=== PATIENT | female | born 1990 | race American Indian/Alaskan Native ===

== ENCOUNTER 2017-04-26 11:04 | Emergency (ER) | payer OTHER ==
[2017-04-26 11:55] VITALS: BP 133/96
--- NOTE | 2017-04-26 12:49 | Emergency Department Report ---
- General Chief complaint: Skin/Abscess/Foreign Body Stated complaint: SWOLLEN/PAINFUL LABIA Time Seen by Provider: 04/26/17 12:44 Source: patient Mode of arrival: Ambulatory Limitations: No Limitations - History of Present Illness Initial comments: Patient here reported that she has swollen labia that started 2 days ago. She said one day prior she went to have a Pap smear at her [facility] Dr. Edwards and the next day her labia became swollen and painful with pain 10 out of 10. Denies any vaginal discharge or bleeding. Denies any abdominal or back pain. Denies any urinary frequency urgency or burning. Denies any fever or chills. TD vaccine is not up-to-date. MD complaint: abscess/boil Onset/Timin -: days(s) Tetanus Up to Date: no Location: genitals (left labia) Severity: severe Severity scale (0 -10): 10 Quality: constant (throbbing) Consistency: constant Improves with: rest Worsens with: palpation, movement Context: other (patient said that she had Pap smear and the use nondisposable medical equipment to do Pap smear she thinks this with she got the infection from.) Associated symptoms: denies other symptoms Treatments Prior to Arrival: none - Related Data Previous Rx's Medication Instructions Recorded Last Taken Type HYDROcodone/APAP 5-325 [[place] 1 each PO Q6HR PRN #12 tablet 04/26/17 Unknown Rx 5-325 mg TAB] Ibuprofen [Motrin] 600 mg PO Q8H PRN #15 tablet 04/26/17 Unknown Rx Sulfamethoxazole/Trimethoprim 1 each PO BID #20 tablet 04/26/17 Unknown Rx [Bactrim DS TAB] Allergies Allergy/AdvReac Type Severity Reaction Status Date / Time No Known Allergies Allergy Verified 04/26/17 11:51 Abscess Boil HPI - HPI Chief Complaint: Skin/Abscess/Foreign Body Stated Complaint: SWOLLEN/PAINFUL LABIA Time Seen by Provider: 04/26/17 12:44 Home Medications: Previous Rx's Medication Instructions Recorded Last Taken Type HYDROcodone/APAP 5-325 [[place] 1 each PO Q6HR PRN #12 tablet 04/26/17 Unknown Rx 5-325 mg TAB] Ibuprofen [Motrin] 600 mg PO Q8H PRN #15 tablet 04/26/17 Unknown Rx Sulfamethoxazole/Trimethoprim 1 each PO BID #20 tablet 04/26/17 Unknown Rx [Bactrim DS TAB] Allergies/Adverse Reactions: Allergies Allergy/AdvReac Type Severity Reaction Status Date / Time No Known Allergies Allergy Verified 04/26/17 11:51 ED Review of Systems ROS: Stated complaint: SWOLLEN/PAINFUL LABIA Other details as noted in HPI Comment: All other systems reviewed and negative Constitutional: denies: chills, fever Respiratory: no symptoms reported Cardiovascular: denies: chest pain, palpitations, edema, syncope Gastrointestinal: denies: abdominal pain, nausea, vomiting Genitourinary: other (abscess to left labia). denies: urgency, dysuria, frequency, hematuria, discharge Skin: other (abscess to left labia, painful) Neurological: denies: headache ED Past Medical Hx - Past Medical History Previous Medical History?: No - Surgical History Past Surgical History?: No - Family History Family history: no significant - Social History Smoking Status: Never Smoker Substance Use Type: None - Medications Home Medications: Home Medications Medication Instructions Recorded Confirmed Last Taken Type HYDROcodone/APAP 5-325 [[place] 1 each PO Q6HR PRN #12 tablet 04/26/17 Unknown Rx 5-325 mg TAB] Ibuprofen [Motrin] 600 mg PO Q8H PRN #15 tablet 04/26/17 Unknown Rx Sulfamethoxazole/Trimethoprim 1 each PO BID #20 tablet 04/26/17 Unknown Rx [Bactrim DS TAB] ED Physical Exam - General Limitations: No Limitations General appearance: alert, in no apparent distress - Head Head exam: Present: atraumatic, normocephalic, normal inspection - Eye Eye exam: Present: normal appearance, PERRL, EOMI Pupils: Present: normal accommodation - ENT ENT exam: Present: normal exam, normal orophraynx - Neck Neck exam: Present: normal inspection, full ROM. Absent: tenderness, lymphadenopathy - Respiratory Respiratory exam: Present: normal lung sounds bilaterally. Absent: respiratory distress, chest wall tenderness - Cardiovascular Cardiovascular Exam: Present: regular rate, normal rhythm, normal heart sounds - GI/Abdominal GI/Abdominal exam: Present: soft, normal bowel sounds. Absent: distended, tenderness, guarding, rebound, rigid - External exam: Present: erythema, swelling, other (indurated nonfluctuant area to left inner labia. Tender to palpate. No rash or lesions). Absent: lesions , lacerations, ecchymosis, bleeding - Extremities Exam Extremities exam: Present: normal inspection, full ROM, normal capillary refill. Absent: tenderness, pedal edema, joint swelling, calf tenderness - Back Exam Back exam: Present: normal inspection, full ROM. Absent: tenderness - Neurological Exam Neurological exam: Present: alert, oriented X3, normal gait, reflexes normal. Absent: motor sensory deficit - Psychiatric Psychiatric exam: Present: normal affect, normal mood - Skin Skin exam: Present: warm, dry, intact, erythema, other (abscess) - Expanded Skin Exam Expanded Distribution of rash: genitals (left labia) Description of rash: Present: size (2 cm in width and 4 cm and with lenght), tenderness, erythematous, swelling, indurated. Absent: discharge, fluctuant ED Course Vital Signs 04/26/17 11:52 Temperature 98.2 F Pulse Rate 82 Respiratory 18 Rate Blood Pressure 133/96 O2 Sat by Pulse 100 Oximetry - Reevaluation(s) Reevaluation #1: 04/26/17 13:27 Patient given Rocephin 1 g in ED for cellulitis and abscess left labia. See procedure note for incision and drainage. She was also updated on her tetanus shot - I & D Left Vagina Type of Procedure: Complex Site: left labia Blade Size: 3 cc of Marcaine I & D Procedure: betadine prep, sterile drapes applied, sterile dressing applied , gauze wick placed Progress: Under sterile precautions, left labia incision and drainage with minimal amount of pus. Areas remained very indurated. Iodoform gauze. Sterile dressing. Tolerated procedure well ED Medical Decision Making - Medical Decision Making ED course: Patient with cellulitis and abscess left labia status post incision and drainage. See procedure note for detailed for incision and drainage. Patient instructed to apply warm compresses to affected area 3-4 times a day to facilitate drainage of abscess. I instructed her to keep packing in and she will need to follow up with Dr. Edwards who is her [facility] in 4 days and if she cannot get in with Dr. Edwards then she can return to emergency room for reevaluation and possible removal of pack in. Patient given Rocephin 1 g IM and emergency room and was also given strict 0.5 mouth IM. She was undescended discharge diagnosis and treatment plan and the need to follow-up. Patient discharged home with prescription for [place], Motrin and Bactrim DS. Critical care attestation.: If time is entered above; I have spent that time in minutes in the direct care of this critically ill patient, excluding procedure time. ED Disposition Clinical Impression: Cellulitis of labia majora, Abscess of labia majora, Encounter for incision and drainage procedure Disposition: TO HOME OR SELFCARE Is pt being admited?: No Does the pt Need Aspirin: No Condition: Stable Instructions: Abscess Incision and Drainage (ED), Cellulitis (ED) Additional Instructions: Please apply warm compresses to affected area 3-4 times a day to facilitate drainage Is follow-up with your [facility] Dr. Edwards in 4 days for evaluation and removal of packing . If he cannot get appointment with your [facility] doctor, please return to the emergency room in 4 days. Keep affected area clean and dry. These do not remove packing from affected area Take antibiotic as prescribed Please do not operate heavy machinery or drive motor vehicle while taking in hydrocodone as this medication will cause you to be drowsy. Prescriptions: HYDROcodone/APAP 5-325 [[place] 5-325 mg TAB] 1 each PO Q6HR PRN #12 tablet PRN Reason: Pain Ibuprofen [Motrin] 600 mg PO Q8H PRN #15 tablet PRN Reason: Pain Sulfamethoxazole/Trimethoprim [Bactrim DS TAB] 1 each PO BID #20 tablet Referrals: ROCIO EDWARDS MD [Staff Physician] - 04/30/17 Forms: Work/School Release Form(ED)
[2017-04-26] MEDS ORDERED: ROCEPHIN IM ONE (12:50)
[2017-04-26] MEDS ORDERED: XYLOCAINE 1% MPF 5 mL INFILTRATI ONE (12:50)
[2017-04-26] MEDS ORDERED: BOOSTRIX IM ONE (12:50)
[2017-04-26] MEDS: MARCAINE 0.5% INFILTRATI ONE (13:24)
== END 2017-04-26 14:56 | disposition home or self-care (01) ==
LOC: ED 11:04
DX: N76.4 Abscess of vulva (principal); N76.2 Acute vulvitis
CPT/HCPCS: 56405; 90471; 90715; 96372; 99282; J0696

== ENCOUNTER 2018-06-12 17:30 | Inpatient (IN) | payer OTHER, MEDICAID ==
[2018-06-12] MEDS ORDERED: NACL 0.9% 500 ML 500 ML IV ONE (17:46)
[2018-06-12] MEDS ORDERED: NACL 0.9% 1000 ML IV ONE (17:53)
[2018-06-12] MEDS ORDERED: TYLENOL PO ONE (17:55)
[2018-06-12] MEDS ORDERED: SUBLIMAZE IV ONE (18:03)
[2018-06-12] MEDS ORDERED: ZOFRAN IV ONE (18:03)
[2018-06-12 18:10] LABS: Hematocrit 30.5 % (30.3-42.9); Hemoglobin 10.1 gm/dl (10.1-14.3); Mean Corpuscular HGB Conc 33 % (30-34); Mean Corpuscular Hemoglobin 28 pg (28-32); Mean Corpuscular Volume 84 fl (79-97); Platelet Count 562 K/mm3 (140-440); Red Blood Count 3.64 M/mm3 (3.65-5.03); Red Cell Distribution Width 15.1 % (13.2-15.2)
[2018-06-12 18:19] LABS: INR 1.01 (0.87-1.13)
[2018-06-12 18:33] LABS: Bacteria,Urine 4+ /HPF (Negative); Bilirubin,Urine NEG (Negative); Blood,Urine SM (Negative); Color,Urine Yellow (Yellow); Mucus,Urine FEW /HPF
[2018-06-12 18:34] LABS: Alanine Aminotransferase 12 units/L (7-56); Albumin 3.5 g/dL (3.9-5); BUN/Creatinine Ratio 11; Blood Urea Nitrogen 9 mg/dL (7-17); Calcium 8.8 mg/dL (8.4-10.2); Hemolysis Index 0
[2018-06-12] MEDS: ZOSYN/NS 4.5GM/100ML 4.5 GM/100 ML VIAL IV SCH (18:36)
--- NOTE | 2018-06-12 18:47 | Emergency Department Report ---
HPI - General Chief Complaint: Back Pain/Injury Time Seen by Provider: 06/12/18 17:50 - HPI HPI: The patient is a 28-year-old female 11 days status post , who presents for evaluation of lower abdominal pain and ill-feeling. The patient reports lower abdominal pain for the past one day, radiating to the back, crampy in quality, moderate in severity, and associated with chills and night sweats. She also reports subjective warmth but did not measure her temperature. The patient denies neck stiffness, cough, chest pain or dyspnea, hemoptysis, unilateral leg swelling, vomiting, diarrhea, blood in the stool, dark tarry stool, hematuria, flank pain, genital discharge, inability to pass flatus, paresthesia, leg weakness, bowel or urine incontinence or retention. ED Past Medical Hx - Past Medical History Hx Hypertension: No Hx Diabetes: No Hx Deep Vein Thrombosis: No Hx Renal Disease: No Hx Sickle Cell Disease: No Hx Seizures: No Hx Asthma: Yes Hx HIV: No - Surgical History Additional Surgical History: - Social History Smoking Status: Never Smoker Substance Use Type: None - Medications Home Medications: Home Medications Medication Instructions Recorded Confirmed Last Taken Type HYDROcodone/APAP 5-325 [[place] 1 each PO Q6HR PRN #12 tablet 04/26/17 05/30/18 Unknown Rx 5-325 mg TAB] Ibuprofen [Motrin] 600 mg PO Q8H PRN #15 tablet 04/26/17 05/30/18 Unknown Rx Sulfamethoxazole/Trimethoprim 1 each PO BID #20 tablet 04/26/17 05/30/18 Unknown Rx [Bactrim DS TAB] Ferrous Sulfate [Feosol 325 MG tab] 325 mg PO BID #60 tablet 06/04/18 Unknown Rx Ibuprofen [Motrin] 600 mg PO Q6H PRN #30 tablet 06/04/18 Unknown Rx oxyCODONE /ACETAMINOPHEN [Percocet 1 tab PO Q6HR PRN #30 tablet 06/04/18 Unknown Rx 5/325] ED Review of Systems ROS: Stated complaint: BACK PAIN Other details as noted in HPI Constitutional: denies: fever ENT: denies: throat or neck pain Respiratory: denies: cough, shortness of breath Cardiovascular: denies: chest pain Endocrine: denies unexplained weight loss or gain Gastrointestinal: reports: abdominal pain, nausea Genitourinary: denies: dysuria Musculoskeletal: reports back pain denies: leg swelling Skin: denies: rash Neurological: denies: headache Hematological/Lymphatic: denies: easy bleeding or easy bruising Psych: denies sadness or hopelessness Physical Exam - Physical Exam Vital Signs: Vital Signs 06/12/18 17:35 Temperature 103.2 F H Pulse Rate 149 H Respiratory 18 Rate Blood Pressure 137/89 O2 Sat by Pulse 99 Oximetry Physical Exam: General: well-nourished, well-developed, no acute distress Head: Normocephalic, atraumatic Eyes: normal sclera ENT: Mucous membranes are pale and dry Neck: No neck stiffness, no cervical adenopathy Respiratory: Breath sounds equal bilaterally, no wheezing, rales, or rhonchi Cardio: S1 and S2 present, no murmurs, rubs, gallops, capillary refill is delayed Abdomen: Normoactive bowel sounds, soft abdomen, superior tenderness to palpation present, no rigidity, no guarding or rebound tenderness Chest WALL/Back: No tenderness to palpation of the chest wall, no CVA tenderness with percussion Musc: No pitting edema Skin: No rash Neuro: no facial drooping, normal speech Psych: Normal affect ED Course Vital Signs 06/12/18 17:35 Temperature 103.2 F H Pulse Rate 149 H Respiratory 18 Rate Blood Pressure 137/89 O2 Sat by Pulse 99 Oximetry ED Medical Decision Making - Lab Data Result diagrams: 06/12/18 17:55 06/12/18 17:55 - Medical Decision Making The patient was seen and examined by myself. The patient is placed on a monitoring analyst and continuous pulse ox. On initial evaluation, the patient was found to be in no distress. Evaluation orders are placed. IV access is established and the patient is given 30cc/kg normal saline fluid bolus and Zofran for nausea, and IV fentanyl for pain. The patient given IV Zosyn for treatment of sepsis. Lab results revealed leukocytosis, WBC 22, elevated urine WBC positive leukocyte esterase: Consistent with acute urosepsis as the patient was found to have fever and tachycardia. CT scan of the abdomen and pelvis reveals an abscess in the pelvic cul-de-sac. The patient given IV Zosyn. Dr. larissa aldrich for the physician on-call for the patient's [employer] was contacted. He agreed to admit the patient. Requested the bridging orders be placed as a courtesy. Bridging orders were placed and the patient was admitted in guarded condition. Critical care attestation.: If time is entered above; I have spent that time in minutes in the direct care of this critically ill patient, excluding procedure time. ED Disposition Clinical Impression: Acute suprapubic pain, Dehydration, Acute lower UTI (urinary tract infection), pelvic abscess Sepsis Qualifiers: Sepsis type: sepsis due to unspecified organism Qualified Code(s): A41.9 - Sepsis, unspecified organism Disposition: OP ADMIT IP TO THIS HOSP Is pt being admited?: Yes Does the pt Need Aspirin: Yes Condition: Serious Referrals: PRIMARY CARE, [Primary Care Provider] - 3-5 Days Time of Disposition: 18:53
[2018-06-12 18:56] LABS: Basophils % (Manual) 0 % (0.0-1.8); Eosinophils % (Manual) 0 % (0.0-4.3); Myelocytes # (Manual) 0.2 K/mm3; Total Cells Counted 100
[2018-06-12 18:57] LABS: Anisocytosis 1+; Platelet Estimate Consistent w Auto; Poikilocytosis 1+
--- NOTE | 2018-06-12 19:21 | XRay Report ---
FINAL REPORT EXAM: XR CHEST 1V AP HISTORY: possible Sepsis TECHNIQUE: Single, portable chest x-ray. PRIORS: None. FINDINGS: Cardiac and mediastinal silhouette within normal limits. Lungs are normally expanded, without significant vascular congestion. No focal consolidation or apparent pneumothorax. Bony thorax grossly unremarkable. IMPRESSION: 1. No acute consolidation.
--- NOTE | 2018-06-12 19:38 | Cat Scan Report ---
FINAL REPORT EXAM: CT ABDOMEN PELVIS W CON HISTORY: low abd pain, fever, 10days s/p TECHNIQUE: Spiral CT scanning of the abdomen and pelvis after the uneventful administration of IV contrast. PRIORS: None. FINDINGS: Abdomen: Visualized lung bases grossly unremarkable. No radiopaque gallstones. Liver without significant abnormality. Spleen without significant abnormality. Pancreas without significant abnormality. Kidneys without significant abnormality. Adrenal glands without significant abnormality. Pelvis: Enlarged, uterus. Small and somewhat ring-enhancing, low-density fluid collection in the pelvic cul-de-sac measuring approximately 7 x 2.5 cm in maximal cross-sectional diameter, which contains a few, tiny gas locules. Larger and heterogeneous, hypo and hyperdense focus or collection in the lower abdominopelvic wall and rectus abdominus musculature measuring approximately 10 x 4.5 cm in cross-sectional diameter and 10 cm in craniocaudal dimension. Smaller low-density fluid focus in the lower pelvic wall subcutaneous tissues immediately subjacent to surgical skin alma rosa measuring approximately 2 x 9 cm in cross-sectional diameter and 3 cm in craniocaudal dimension, without significant ring enhancement. Bowel grossly unremarkable. Probable appendix partially visualized and grossly unremarkable. Trace amount of nonspecific, free fluid in the pelvis. No apparent adenopathy. Abdominal aorta non-aneurysmal. Axial skeleton grossly unremarkable. IMPRESSION: 1. uterus, with probable small inflammatory collection or abscess in the pelvic cul-de-sac, as reported. 2. Larger, probable hematoma in the lower abdominopelvic wall and rectus abdominus musculature, with probable small seroma in the subcutaneous tissues of lower pelvic wall. Dr. Woodruff discussed results with Dr. Garza on 12 June 2018 at approximately 1927 hours EST.
--- NOTE | 2018-06-12 19:49 | Ultrasound Report ---
FINAL REPORT EXAM: US PELVIC COMPLETE HISTORY: low abd pain, fever, 10 days s/p TECHNIQUE: Transabdominal and transvaginal sonography of the pelvis. PRIORS: CT abdomen and pelvis of same date. FINDINGS: uterus enlarged measuring 14.5 x 6.6 x 7.0 cm and appears grossly unremarkable. The endometrial stripe is within normal limits. Complex or heterogeneous, anechoic-hypoechoic foci in the lower anterior uterus or vesico vaginal pouch measuring 1 x 2.2 x 1.5 cm on the right and 4.2 x 1.0 x 3.7 cm on the left, the latter with some posterior acoustic shadowing suggesting internal gas. The right ovary is not confidently identified by the maintenance technician 3rd shift. The left ovary measures 4.5 x 4.6 x 4.3 cm and is grossly unremarkable. No adnexal masses or significant free peritoneal fluid. IMPRESSION: 1. Complex or heterogeneous collections in lower anterior uterine segment corresponding to probable inflammatory collection/abscess noted on comparison study in the vesicovaginal pouch or cul-de-sac. Clinical correlation and followup suggested.
--- NOTE | 2018-06-12 19:50 | Ultrasound Report ---
FINAL REPORT EXAM: US TRANSVAGINAL HISTORY: low abd pain, fever, 10 days s/p TECHNIQUE: Transabdominal and transvaginal sonography of the pelvis. PRIORS: CT abdomen and pelvis of same date. FINDINGS: uterus enlarged measuring 14.5 x 6.6 x 7.0 cm and appears grossly unremarkable. The endometrial stripe is within normal limits. Complex or heterogeneous, anechoic-hypoechoic foci in the lower anterior uterus or vesico vaginal pouch measuring 1 x 2.2 x 1.5 cm on the right and 4.2 x 1.0 x 3.7 cm on the left, the latter with some posterior acoustic shadowing suggesting internal gas. The right ovary is not confidently identified by the plasma processing technician. The left ovary measures 4.5 x 4.6 x 4.3 cm and is grossly unremarkable. No adnexal masses or significant free peritoneal fluid. IMPRESSION: 1. Complex or heterogeneous collections in lower anterior uterine segment corresponding to probable inflammatory collection/abscess noted on comparison study in the vesicovaginal pouch or cul-de-sac. Clinical correlation and followup suggested.
[2018-06-12] MEDS ORDERED: VANCOMYCIN/NS 1 GM/250 ML 1 GM/250 ML BAG IV SCH (20:00)
[2018-06-12] MEDS ORDERED: VANCOMYCIN PHARMACY TO DOSE IV SCH (20:00)
[2018-06-12] MEDS ORDERED: VANCOMYCIN 1,500 MG in NACL 0.9% 500 ML 500 ML IV ONE (20:30)
[2018-06-12] MEDS ORDERED: TORADOL IV PRN (23:35)
[2018-06-13] MEDS: PERCOCET 5/325 PO PRN ×2 (00:01→12:20)
[2018-06-13] MEDS: LACTATED RINGERS 1,000 ML IV SCH ×3 (00:03→19:39)
[2018-06-13] MEDS: ZOSYN/NS 4.5GM/100ML 4.5 GM/100 ML VIAL IV SCH ×3 (05:03→21:45)
[2018-06-13] MEDS ORDERED: VANCOMYCIN 1,250 MG in NACL 0.9% 250ML 250 ML IV SCH (09:00)
--- NOTE | 2018-06-13 10:06 | History and Physical Report ---
History of Present Illness Date of examination: 06/13/18 Date of admission: 06/12/18 20:01 Chief complaint: Abdominal pains History of present illness: Pt is a 28yo BF S/P C Section 06/01/18 who presents for evaluation of lower abdominal pain and ill-feeling. The patient reports lower abdominal pain for the past one day, radiating to the back, crampy in quality, moderate in severity , and associated with chills and night sweats. She also reports subjective warmth but did not measure her temperature. The patient denies neck stiffness, cough, chest pain or dyspnea, hemoptysis, unilateral leg swelling, vomiting, diarrhea, blood in the stool, dark tarry stool, hematuria, flank pain, genital discharge, inability to pass flatus, paresthesia, leg weakness, bowel or urine incontinence or retention. Pelvic C T Scan showed a probable hematoma/abscess in the lower abdominopelvic wall with a probable small seroma in the subcutaneous tissue of the lower pelvic wall. WBC is elevated at 22.5k She will therefore be admitted for IV antibiotics and possible CT guided drainage of pelvic abscess. Past History Past Medical History: no pertinent history Past Surgical History: section Family/Genetic History: none Social history: no significant social history, single - Obstetrical History : 2 Medications and Allergies Allergies Allergy/AdvReac Type Severity Reaction Status Date / Time No Known Allergies Allergy Verified 04/26/17 11:51 Home Medications Medication Instructions Recorded Confirmed Last Taken Type HYDROcodone/APAP 5-325 [[place] 1 each PO Q6HR PRN #12 tablet 04/26/17 06/13/18 Unknown Rx 5-325 mg TAB] Ibuprofen [Motrin] 600 mg PO Q8H PRN #15 tablet 04/26/17 06/13/18 Unknown Rx Sulfamethoxazole/Trimethoprim 1 each PO BID #20 tablet 04/26/17 06/13/18 Unknown Rx [Bactrim DS TAB] Ferrous Sulfate [Feosol 325 MG tab] 325 mg PO BID #60 tablet 06/04/18 06/13/18 Unknown Rx Ibuprofen [Motrin] 600 mg PO Q6H PRN #30 tablet 06/04/18 06/13/18 06/12/18 Rx oxyCODONE /ACETAMINOPHEN [Percocet 1 tab PO Q6HR PRN #30 tablet 06/04/18 Unknown Rx 5/325] Active Meds: Active Medications Piperacillin Sod/Tazobactam Sod (Zosyn/Ns 4.5gm/100ml) 4.5 gm in 100 mls @ 200 mls/hr IV Q8HR MARILIN; Protocol Last Admin: 06/13/18 05:03 Dose: 200 mls/hr Vancomycin HCl 1,250 mg/ (Sodium Chloride) 275 mls @ 166.667 mls/hr IV Q8H MARILIN Lactated Ringer's (Lactated Ringers) 1,000 mls @ 125 mls/hr IV DIRECT MARILIN Last Admin: 06/13/18 00:03 Dose: 125 mls/hr Ketorolac Tromethamine (Toradol) 30 mg IV Q6H PRN PRN Reason: Pain, Moderate (4-6) Stop: 06/17/18 23:34 Last Admin: 06/13/18 05:14 Dose: 30 mg Oxycodone/Acetaminophen (Percocet 5/325) 2 tab PO Q4H PRN PRN Reason: Pain, Moderate (4-6) Last Admin: 06/13/18 00:01 Dose: 2 tab Vancomycin HCl (Vancomycin Pharmacy To Dose) 1 each IV PKCONSULT MARILIN Review of Systems All systems: negative Constitutional: fever - Vital Signs Vital signs: Vital Signs Temp Pulse Resp BP Pulse Ox 103.2 F H 149 H 18 137/89 99 06/12/18 17:35 06/12/18 17:35 06/12/18 17:35 06/12/18 17:35 06/12/18 17:35 Temp Pulse Resp BP Pulse Ox 98.9 F 96 H 18 121/76 99 06/13/18 08:10 06/13/18 08:10 06/13/18 08:10 06/13/18 08:10 06/13/18 08:10 - Physical Exam Breasts: Positive: deferred Cardiovascular: Regular rate Lungs: Positive: Clear to auscultation Abdomen: Positive: normal appearance, soft Uterus: Positive: enlarged Extremities: Positive: normal Results Result Diagrams: 06/12/18 17:55 06/12/18 17:55 Abnormal lab results 06/12/18 06/12/18 06/12/18 Range/Units 17:55 17:55 17:55 WBC 22.5 H (4.5-11.0) K/mm3 RBC 3.64 L (3.65-5.03) M/mm3 Plt Count 562 H (140-440) K/mm3 Seg Neuts % (Manual) 92.0 H (40.0-70.0) % Lymphocytes % (Manual) 3.0 L (13.4-35.0) % Seg Neutrophils # Man 20.7 H (1.8-7.7) K/mm3 Lymphocytes # (Manual) 0.7 L (1.2-5.4) K/mm3 Monocytes # (Manual) 0.9 H (0.0-0.8) K/mm3 VBG pH 7.443 H (7.320-7.420) Sodium 136 L (137-145) mmol/L Glucose 123 H (65-100) mg/dL Albumin 3.5 L (3.9-5) g/dL Urine WBC (Auto) (0.0-6.0) /HPF 06/12/18 Range/Units 18:06 WBC (4.5-11.0) K/mm3 RBC (3.65-5.03) M/mm3 Plt Count (140-440) K/mm3 Seg Neuts % (Manual) (40.0-70.0) % Lymphocytes % (Manual) (13.4-35.0) % Seg Neutrophils # Man (1.8-7.7) K/mm3 Lymphocytes # (Manual) (1.2-5.4) K/mm3 Monocytes # (Manual) (0.0-0.8) K/mm3 VBG pH (7.320-7.420) Sodium (137-145) mmol/L Glucose (65-100) mg/dL Albumin (3.9-5) g/dL Urine WBC (Auto) 133.0 H (0.0-6.0) /HPF All other labs normal. Microbiology 06/12/18 18:06 Urine,Ureter Urine Culture - Preliminary Gram Negative Andrew 06/12/18 17:55 Peripheral/Venous Blood Culture - Preliminary 06/12/18 17:55 Peripheral/Venous Blood Culture - Preliminary Culture in Progress Ultrasound: report reviewed CT scan - pelvis: report reviewed Assessment and Plan - Patient Problems (1) pelvic abscess Onset Date: 06/13/18 Current Visit: Yes Status: Acute Plan to address problem: A: Pelvic abscess - s/p C Section Sepsis - most likely due to pelvic abscess P: Will admit for IV antibiotics - currently on Vancomycin and Zosyn Obtain Infectious Disease consult Obtain an Interventional Radiologist consultation (2) Sepsis Onset Date: 06/13/18 Current Visit: Yes Status: Acute Qualifiers: Sepsis type: sepsis due to unspecified organism Qualified Code(s): A41.9 - Sepsis, unspecified organism
[2018-06-13] MEDS ORDERED: ZOFRAN IV PRN (10:14)
[2018-06-13] MEDS ORDERED: COLACE PO PRN (10:14)
--- NOTE | 2018-06-13 10:40 | Event Note ---
Date: 06/13/[address] of the abdomen and pelvis. There is a large hematoma in the rectus sheath without extravasation or pseudoaneurysm. There is a small fluid collection in the pelvic cul-de-sac which cannot be percutaneously accessed due to the large overlying hematoma in the rectus sheath. There is a small superficial seroma underneath the alma rosa of the lower abdominal wall. The seroma could be drained by opening some of the alma rosa and decompressing the seroma. Recommend ID consult. No IR drainage procedures planned.
[2018-06-13] MEDS ORDERED: DIFLUCAN PO ONE (11:08)
--- NOTE | 2018-06-13 16:31 | Consultation ---
History of Present Illness - Reason for Consult Consult date: 06/13/18 Sepsis Requesting physician: ANABEL JAVIER - History of Present Illness HPI: 28-year-old female s/p C- Section 06/01/18 who was admitted on 06/12/28 to [facility] complaining of abdominal pain, profuse sweating/cold, lower back pain radiated to the legs, nausea and 1 episode of vomiting. Symptoms started around 06/10. Denies dysuria, foul smelling vaginal discharge, cough, shortness of breath, chest pain. In the emergency room her temperature was 103.2, pulse 149, respiratory rate 18, saturation 99%, blood pressure 137/ 89. Her labs were significant for a leukocytosis of 22.5, H&H 10.1 and 30.5 platelets 562. Lactic acid was 0.8. She had a CT of the abdomen and pelvis that showed larger, probable hematoma in the lower abdominopelvic wall and rectus abdominus musculature, with probable small seroma in the subcutaneous tissues of the lower pelvic wall. Pelvic/vaginal ultrasound showed complex or heterogeneous collection in the lower anterior uterine segment corresponding to probable inflammatory collection/abscess. Blood cultures and urine culture were collected. They were reported positive for gram-negative rods. Patient was evaluated by interventional radiology for possible percutaneous aspiration of pelvic collection, but cannot be percutaneously accessed due to the large overlying hematoma in the rectus sheath. Patient has been on Zosyn and vancomycin since 06/12/18. Infectious diseases is consulted to help with further antibiotic management. Microbiology: Blood cultures: 06/12 GNR Urine cultures: 06/12 GNR Current Antimicrobials: Zosyn 06/12- Vancomycin 06/12- Past History Social history: no significant social history, single Medications and Allergies Allergies Allergy/AdvReac Type Severity Reaction Status Date / Time No Known Allergies Allergy Verified 04/26/17 11:51 Home Medications Medication Instructions Recorded Confirmed Last Taken Type HYDROcodone/APAP 5-325 [[place] 1 each PO Q6HR PRN #12 tablet 04/26/17 06/13/18 Unknown Rx 5-325 mg TAB] Ibuprofen [Motrin] 600 mg PO Q8H PRN #15 tablet 04/26/17 06/13/18 Unknown Rx Sulfamethoxazole/Trimethoprim 1 each PO BID #20 tablet 04/26/17 06/13/18 Unknown Rx [Bactrim DS TAB] Ferrous Sulfate [Feosol 325 MG tab] 325 mg PO BID #60 tablet 06/04/18 06/13/18 Unknown Rx Ibuprofen [Motrin] 600 mg PO Q6H PRN #30 tablet 06/04/18 06/13/18 06/12/18 Rx oxyCODONE /ACETAMINOPHEN [Percocet 1 tab PO Q6HR PRN #30 tablet 06/04/18 Unknown Rx 5/325] Active Meds: Active Medications Acetaminophen (Tylenol) 650 mg PO Q4H PRN PRN Reason: Pain MILD(1-3)/Fever >100.5/HENAO Docusate Sodium (Colace) 100 mg PO Q12H PRN PRN Reason: Constipation Piperacillin Sod/Tazobactam Sod (Zosyn/Ns 4.5gm/100ml) 4.5 gm in 100 mls @ 200 mls/hr IV Q8HR MARILIN; Protocol Last Admin: 06/13/18 05:03 Dose: 200 mls/hr Lactated Ringer's (Lactated Ringers) 1,000 mls @ 125 mls/hr IV DIRECT MARILIN Last Admin: 06/13/18 09:15 Dose: 125 mls/hr Ketorolac Tromethamine (Toradol) 30 mg IV Q6H PRN PRN Reason: Pain, Moderate (4-6) Stop: 06/17/18 23:34 Last Admin: 06/13/18 05:14 Dose: 30 mg Multivitamins/Iron/Calcium ( Vitamin) 1 each PO QDAY MARILIN Ondansetron HCl (Zofran) 4 mg IV Q6H PRN PRN Reason: Nausea And Vomiting Oxycodone/Acetaminophen (Percocet 5/325) 2 tab PO Q4H PRN PRN Reason: Pain, Moderate (4-6) Last Admin: 06/13/18 00:01 Dose: 2 tab Review of Systems Constitutional: other (As per HPI.) Physical Examination - Physical Exam Narrative exam: General appearance: Pt in NAD, A&Ox3. Eyes: anicteric sclerae, moist conjunctivae; no lid-lag; PERRLA HENT: Atraumatic; oropharynx clear with moist mucous membranes and no mucosal ulcerations/no oral thrush; normal hard and soft palate. Normal external ears. Neck: Trachea midline; supple, no thyromegaly or lymphadenopathy Lungs: CTA, with normal respiratory effort and no intercostal retractions CV: S1,S2. Abdomen: Soft, non-tender; no masses or hepatosplenomegaly. C section wound (s/ p alma rosa removal today), well approximated, no drainage or amanuel-wound erythema. Extremities: No c/c/e. Skin: Normal temperature, turgor and texture; no rash, ulcers or subcutaneous nodules Psych: Appropriate affect, alert and oriented to person, place and time. Neuro: alert and oriented x 3. Moving all extremities. Lines: PIV. - Constitutional Vitals: Vital Signs Temp Pulse Resp BP Pulse Ox 102.8 F H 119 H 20 136/76 100 06/13/18 11:55 06/13/18 11:55 06/13/18 11:55 06/13/18 11:55 06/13/18 11:55 Temperature -Last 24 Hours Temperature 102.8 F Temperature 98.9 F Temperature 100.0 F Temperature 102.4 F Temperature 99.2 F Temperature 100.8 F Temperature 101.1 F Temperature 103.1 F Temperature 103.2 F Results - Labs CBC & Chem 7: 06/12/18 17:55 06/12/18 17:55 Labs: Abnormal lab results 06/12/18 06/12/18 06/12/18 Range/Units 17:55 17:55 17:55 WBC 22.5 H (4.5-11.0) K/mm3 RBC 3.64 L (3.65-5.03) M/mm3 Plt Count 562 H (140-440) K/mm3 Seg Neuts % (Manual) 92.0 H (40.0-70.0) % Lymphocytes % (Manual) 3.0 L (13.4-35.0) % Seg Neutrophils # Man 20.7 H (1.8-7.7) K/mm3 Lymphocytes # (Manual) 0.7 L (1.2-5.4) K/mm3 Monocytes # (Manual) 0.9 H (0.0-0.8) K/mm3 VBG pH 7.443 H (7.320-7.420) Sodium 136 L (137-145) mmol/L Glucose 123 H (65-100) mg/dL Albumin 3.5 L (3.9-5) g/dL Urine WBC (Auto) (0.0-6.0) /HPF 06/12/18 Range/Units 18:06 WBC (4.5-11.0) K/mm3 RBC (3.65-5.03) M/mm3 Plt Count (140-440) K/mm3 Seg Neuts % (Manual) (40.0-70.0) % Lymphocytes % (Manual) (13.4-35.0) % Seg Neutrophils # Man (1.8-7.7) K/mm3 Lymphocytes # (Manual) (1.2-5.4) K/mm3 Monocytes # (Manual) (0.0-0.8) K/mm3 VBG pH (7.320-7.420) Sodium (137-145) mmol/L Glucose (65-100) mg/dL Albumin (3.9-5) g/dL Urine WBC (Auto) 133.0 H (0.0-6.0) /HPF Assessment and Plan Assessment: 1) Sepsis: Present on admission, manifested by fever, tachycardia, leukocytosis. Due to gram-negative callum bacteremia due to pelvic hematoma/ abscess +/- UTI. 2) GNR bacteremia. 3) GNR UTI. 4) Pelvic hematoma/abscess. 5) s/p C section 06/01/18. Plan: -follow-up blood cultures, urine culture. -Stop vancomycin. -Continue Zosyn. -Will adjust antibiotics based on cultures. -Repeat Blood cx today. -CBC in AM. -d/w pt, RN. Thank you for your consultation, will follow up with you. Marie Dick MD Infectious Diseases Specialist [facility] ([facility]) M [phone]
[2018-06-13] MEDS: TYLENOL PO PRN (21:45)
[2018-06-14 05:15] LABS: Basophils % (Auto) 0.2 % (0.0-1.8); Eosinophils % (Auto) 0.2 % (0.0-4.3); Hematocrit 27.8 % (30.3-42.9); Hemoglobin 9.2 gm/dl (10.1-14.3); Lymphocytes # (Auto) 1.1 K/mm3 (1.2-5.4); Lymphocytes % (Auto) 11.1 % (13.4-35.0); Mean Corpuscular HGB Conc 33 % (30-34); Mean Corpuscular Hemoglobin 27 pg (28-32); Mean Corpuscular Volume 82 fl (79-97); Monocytes % (Auto) 9.5 % (0.0-7.3); Platelet Count 429 K/mm3 (140-440); Red Blood Count 3.39 M/mm3 (3.65-5.03); Red Cell Distribution Width 15.3 % (13.2-15.2)
[2018-06-14] MEDS: ZOSYN/NS 4.5GM/100ML 4.5 GM/100 ML VIAL IV SCH ×3 (06:49→21:23)
[2018-06-14] MEDS: LACTATED RINGERS 1,000 ML IV SCH ×2 (06:50→21:27)
[2018-06-14] MEDS: PRENATAL VITAMIN PO SCH (08:35)
--- NOTE | 2018-06-14 09:58 | Progress Note ---
Assessment and Plan Assessment: 1) Sepsis: Present on admission, manifested by fever, tachycardia, leukocytosis. Due to gram-negative callum bacteremia due to pelvic hematoma/ abscess +/- UTI. Still low grade fever. Leukocytosis resolved 2) GNR bacteremia. 3) E coli UTI. 4) Pelvic hematoma/abscess. 5) s/p 06/01/18. Plan: -follow-up blood cultures. -Continue Zosyn. -Will continue to adjust antibiotics based on cultures. -d/w pt, RN. -Will continue to follow up. Marie Dick MD Infectious Diseases Specialist [facility] ([facility]) M [phone] Subjective Date of service: 06/14/18 Interval history: Low grade fever earlier today. Feels well. Denies N/V/D, abdominal pain, dysuria , vaginal discharge, cough, SOP, CP, HENAO. Microbiology: Blood cultures: 06/12 GNR Urine cultures: 06/12 E coli only R to ampicillin, amp/sulbactam. Current Antimicrobials: Zosyn 06/12- Prior Antimicrobials: Vancomycin 06/12- Objective - Exam Narrative Exam: General appearance: Pt in NAD, A&Ox3. Eyes: anicteric sclerae, moist conjunctivae; no lid-lag; PERRLA HENT: Atraumatic; oropharynx clear with moist mucous membranes and no mucosal ulcerations/no oral thrush; normal hard and soft palate. Normal external ears. Neck: Trachea midline; supple, no thyromegaly or lymphadenopathy Lungs: CTA, with normal respiratory effort and no intercostal retractions CV: S1,S2. S1,S2. Abdomen: Soft, non-tender; no masses or hepatosplenomegaly. C section wound (s/ p alma rosa removal 06/13), well approximated, no drainage or amanuel-wound erythema. Extremities: No c/c/e. Skin: Normal temperature, turgor and texture; no rash, ulcers or subcutaneous nodules Psych: Appropriate affect, alert and oriented to person, place and time. Neuro: alert and oriented x 3. Non-focal deficits. Lines: PIV. - Constitutional Vitals: Vital Signs Temp Pulse Resp BP Pulse Ox 100.2 F H 104 H 16 121/76 100 06/14/18 08:30 06/14/18 08:30 06/14/18 04:30 06/14/18 04:30 06/13/18 17:07 Temperature -Last 24 Hours Temperature 100.2 F Temperature 98.7 F Temperature 101 F Temperature 103.1 F Temperature 100.5 F Temperature 102.8 F - Labs CBC & Chem 7: 06/14/18 04:57 06/12/18 17:55 Labs: Abnormal lab results 06/14/18 Range/Units 04:57 RBC 3.39 L (3.65-5.03) M/mm3 Hgb 9.2 L (10.1-14.3) gm/dl Hct 27.8 L (30.3-42.9) % MCH 27 L (28-32) pg RDW 15.3 H (13.2-15.2) % Lymph % (Auto) 11.1 L (13.4-35.0) % [place] % (Auto) 9.5 H (0.0-7.3) % Lymph # 1.1 L (1.2-5.4) K/mm3 [place] # 1.0 H (0.0-0.8) K/mm3 Seg Neutrophils % 79.0 H (40.0-70.0) % Seg Neutrophils # 8.0 H (1.8-7.7) K/mm3
--- NOTE | 2018-06-14 10:11 | Progress Note ---
Assessment and Plan - Patient Problems (1) pelvic abscess Onset Date: 06/13/18 Current Visit: Yes Status: Acute Plan to address problem: A: Pelvic abscess - s/p C Section Sepsis - most likely due to pelvic abscess UTI Bacteremia P: Continue IV antibiotics - currently on Zosyn Awaiting sensitivities on urine and blood cultures Appreciate Infectious Disease consultation Appreciate Interventional Radiologist consultation (2) Sepsis Onset Date: 06/13/18 Current Visit: Yes Status: Acute Qualifiers: Sepsis type: sepsis due to unspecified organism Qualified Code(s): A41.9 - Sepsis, unspecified organism (3) Acute lower UTI (urinary tract infection) Onset Date: 06/14/18 Current Visit: Yes Status: Acute Subjective - Subjective Date of service: 06/14/18 Principal diagnosis: Pelvic abscess; Sepsis Interval history: Pt is a 28yo BF S/P C Section 06/01/18 who presented for evaluation of lower abdominal pain and ill-feeling. The patient reported lower abdominal pain , radiating to the back, crampy in quality, moderate in severity, and associated with chills and night sweats. She also reported subjective warmth but did not measure her temperature. Pelvic C T Scan showed a probable hematoma/ abscess in the lower abdominopelvic wall with a probable small seroma in the subcutaneous tissue of the lower pelvic wall. WBC was elevated at 22.5k, but now improved to 10.2k on IV Zosyn and Vancomycin. Infectious Disease has subsequently d/c'd the Vancomycin. Her blood cultures showed GNR, but she is feeling much better today. Patient reports: appetite normal, voiding normally, pain well controlled, flatus , ambulating normally, no nauseated Objective - Vital Signs Latest vital signs: Vital Signs Temp Pulse Resp BP BP Pulse Ox 06/14/18 08:30 100.2 F H 104 H 06/14/18 04:30 98.7 F 77 16 121/76 06/13/18 23:10 101 F H 122 H 18 128/70 06/13/18 22:45 18 06/13/18 21:45 18 06/13/18 20:00 103.1 F H 77 16 162/96 06/13/18 17:07 100.5 F H 107 H 18 149/91 100 06/13/18 12:20 20 06/13/18 11:55 102.8 F H 119 H 20 136/76 100 Intake and Output 06/13/18 06/14/18 06/14/18 22:59 06:59 14:59 Intake Total 1680 1466.667 Output Total 500 400 Balance 1180 1066.667 Intake: IV 1200 866.667 Lactated Ringers 1,000 ml 1000 866.667 @ 125 mls/hr IV DIRECT MARILIN Rx#:[id number] ZOSYN/NS 4.5GM/100ML 4.5 200 gm In 100 ml @ 200 mls/hr IV Q8HR MARILIN Rx#: [id number] Oral 240 240 Intake, Free Water 240 360 Output: Urine 500 400 Void 500 400 Other: Total, Intake Amount 240 240 Total, Output Amount 300 200 # Voids Void 1 1 - Exam Breasts: Present: deferred Cardiovascular: Present: Regular rate Lungs: Present: Clear to auscultation Abdomen: Present: normal appearance, soft Uterus: Present: normal, firm, fundal height below umbilicus Incision: Present: normal, dry, intact - Labs Labs: Abnormal lab results 06/14/18 Range/Units 04:57 RBC 3.39 L (3.65-5.03) M/mm3 Hgb 9.2 L (10.1-14.3) gm/dl Hct 27.8 L (30.3-42.9) % MCH 27 L (28-32) pg RDW 15.3 H (13.2-15.2) % Lymph % (Auto) 11.1 L (13.4-35.0) % [place] % (Auto) 9.5 H (0.0-7.3) % Lymph # 1.1 L (1.2-5.4) K/mm3 [place] # 1.0 H (0.0-0.8) K/mm3 Seg Neutrophils % 79.0 H (40.0-70.0) % Seg Neutrophils # 8.0 H (1.8-7.7) K/mm3 Laboratory Results - last 24 hr 06/14/18 04:57 WBC 10.2 RBC 3.39 L Hgb 9.2 L Hct 27.8 L MCV 82 MCH 27 L MCHC 33 RDW 15.3 H Plt Count 429 Lymph % (Auto) 11.1 L [place] % (Auto) 9.5 H Eos % (Auto) 0.2 Baso % (Auto) 0.2 Lymph # 1.1 L [place] # 1.0 H Eos # 0.0 Baso # 0.0 Seg Neutrophils % 79.0 H Seg Neutrophils # 8.0 H Microbiology 06/12/18 18:06 Urine,Ureter Urine Culture - Final Escherichia Coli 06/12/18 17:55 Peripheral/Venous Blood Culture - Preliminary Gram Negative Andrew 06/12/18 17:55 Peripheral/Venous Blood Culture - Preliminary NO GROWTH AFTER 24 HOURS 06/13/18 16:12 Peripheral/Venous Blood Culture - Preliminary Culture in Progress 06/13/18 16:12 Peripheral/Venous Blood Culture - Preliminary Culture in Progress
[2018-06-14] MEDS: PERCOCET 5/325 PO PRN (21:35)
[2018-06-15] MEDS: TYLENOL PO PRN ×2 (01:43→18:02)
[2018-06-15] MEDS: ZOSYN/NS 4.5GM/100ML 4.5 GM/100 ML VIAL IV SCH (06:00)
[2018-06-15] MEDS: LACTATED RINGERS 1,000 ML IV SCH ×3 (07:00→22:50)
--- NOTE | 2018-06-15 08:51 | Progress Note ---
Assessment and Plan Assessment: 1) Sepsis: Present on admission, manifested by fever, tachycardia, leukocytosis. Due to E coli bacteremia due to pelvic hematoma/abscess +/- UTI. -Still low grade fever. -Leukocytosis resolved as of 06/14. 2) E coli bacteremia. -BCx 06/13 NGTD 3) E coli UTI. 4) Pelvic hematoma/abscess. - not amenable to drainage per IR 5) s/p 06/01/18. Plan: -follow-up blood cultures. -Stop Zosyn and start Ceftriaxone. -If remains febrile, may need to repeat pelvic/transvaginal US to evaluate progression of pelvic hematoma/abscess. -d/w pt, RN. -Will continue to follow up. Marie Dick MD Infectious Diseases Specialist [facility] ([facility]) M [phone] Subjective Date of service: 06/15/18 Principal diagnosis: Pelvic abscess; Sepsis Interval history: Has fever yesterday and earlier today. Has abdominal tenderness on palpation and crampy pain. Denies N/V/D, dysuria. Microbiology: Blood cultures: 06/12 E coli 06/13 NGTD Urine cultures: 06/12 E coli only R to ampicillin, amp/sulbactam. Current Antimicrobials: Ceftriaxone 06/15- Prior Antimicrobials: Vancomycin 06/12- Zosyn 06/12-06/15 Objective - Exam Narrative Exam: General appearance: Pt in NAD, A&Ox3. Eyes: anicteric sclerae, moist conjunctivae; no lid-lag; PERRLA HENT: Atraumatic; oropharynx clear with moist mucous membranes and no mucosal ulcerations/no oral thrush; normal hard and soft palate. Normal external ears. Neck: Trachea midline; supple, no thyromegaly or lymphadenopathy Lungs: CTA, with normal respiratory effort and no intercostal retractions CV: S1,S2. S1,S2. Abdomen: Soft, tender to palpation and firm below umbilicus. C section wound (s/ p alma rosa removal 06/13), well approximated, no amanuel-wound erythema. Extremities: No c/c/e. Skin: Normal temperature, turgor and texture; no rash, ulcers or subcutaneous nodules Psych: Appropriate affect, alert and oriented to person, place and time. Neuro: alert and oriented x 3. Non-focal deficits. Lines: PIV. - Constitutional Vitals: Vital Signs Temp Pulse Resp BP Pulse Ox 99.6 F 81 18 148/79 99 06/15/18 04:00 06/15/18 04:00 06/15/18 04:00 06/15/18 04:00 06/14/18 11:58 Temperature -Last 24 Hours Temperature 99.6 F Temperature 100.7 F Temperature 100.7 F Temperature 99.1 F Temperature 100.5 F Temperature 98.6 F - Labs CBC & Chem 7: 06/14/18 04:57 06/12/18 17:55
[2018-06-15] MEDS: PRENATAL VITAMIN PO SCH (10:48)
[2018-06-15] MEDS: ROCEPHIN/NS 2 GM/100 ML 2 GM/100 ML BAG IV SCH (10:48)
--- NOTE | 2018-06-15 14:23 | Progress Note ---
Assessment and Plan - Patient Problems (1) pelvic abscess Onset Date: 06/13/18 Current Visit: Yes Status: Acute Plan to address problem: A: Pelvic abscess - s/p C Section Sepsis - most likely due to pelvic abscess UTI - E.coli Bacteremia - E.coli P: Continue IV antibiotics - currently on Ceftriaxone Appreciate Infectious Disease consultation (2) Sepsis Onset Date: 06/13/18 Current Visit: Yes Status: Acute Qualifiers: Sepsis type: sepsis due to unspecified organism Qualified Code(s): A41.9 - Sepsis, unspecified organism (3) Acute lower UTI (urinary tract infection) Onset Date: 06/14/18 Current Visit: Yes Status: Acute Subjective - Subjective Date of service: 06/15/18 Principal diagnosis: Pelvic abscess; Sepsis Interval history: Pt is a 28yo BF S/P C Section 06/01/18 who presented for evaluation of lower abdominal pain and ill-feeling. The patient reported lower abdominal pain , radiating to the back, crampy in quality, moderate in severity, and associated with chills and night sweats. She also reported subjective warmth but did not measure her temperature. Pelvic C T Scan showed a probable hematoma/ abscess in the lower abdominopelvic wall with a probable small seroma in the subcutaneous tissue of the lower pelvic wall. WBC was elevated at 22.5k, but now improved to 10.2k on IV Zosyn and Vancomycin. Infectious Disease has subsequently d/c'd the Vancomycin and Zosyn and started on Ceftriaxone. Her blood and urine cultures showed E.coli. Patient reports: appetite normal, voiding normally, pain well controlled, ambulating normally, no nauseated Objective - Vital Signs Latest vital signs: Vital Signs Temp Pulse Resp BP Pulse Ox 06/15/18 13:16 98.5 F 102 H 20 154/105 100 06/15/18 08:00 98.8 F 70 18 150/94 100 06/15/18 04:00 99.6 F 81 18 148/79 06/15/18 00:00 100.7 F H 81 18 148/81 06/14/18 23:30 100.7 F H 102 H 18 159/89 06/14/18 21:40 99.1 F 20 06/14/18 19:30 100.5 F H 77 22 138/89 Intake and Output 06/14/18 06/15/1806/15/18 22:59 06:59 14:59 Intake Total 940 1000 720 Balance 940 1000 720 Intake: IV 200 1000 Lactated Ringers 1,000 ml 1000 @ 125 mls/hr IV DIRECT MARILIN Rx#:[id number] ZOSYN/NS 4.5GM/100ML 4.5 200 gm In 100 ml @ 200 mls/hr IV Q8HR MARILIN Rx#: [id number] Oral 440 720 Intake, Free Water 300 Other: Total, Intake Amount 240 360 # Voids Void 1 - Exam Cardiovascular: Present: Regular rate Lungs: Present: Clear to auscultation Abdomen: Present: normal appearance, soft, tenderness Incision: Present: normal, dry, intact
[2018-06-15] MEDS: PROCARDIA XL PO SCH (17:58)
[2018-06-15] MEDS ORDERED: APRESOLINE IV ONE (18:07)
[2018-06-16] MEDS: TYLENOL PO PRN ×2 (00:20→14:34)
[2018-06-16] MEDS: LACTATED RINGERS 1,000 ML IV SCH (05:59)
[2018-06-16 06:50] LABS: Basophils % (Auto) 0.7 % (0.0-1.8); Eosinophils # (Auto) 0.2 K/mm3 (0.0-0.4); Eosinophils % (Auto) 2.4 % (0.0-4.3); Hematocrit 30.8 % (30.3-42.9); Hemoglobin 9.9 gm/dl (10.1-14.3); Lymphocytes # (Auto) 1.3 K/mm3 (1.2-5.4); Lymphocytes % (Auto) 18.1 % (13.4-35.0); Mean Corpuscular HGB Conc 32 % (30-34); Mean Corpuscular Hemoglobin 26 pg (28-32); Mean Corpuscular Volume 82 fl (79-97); Monocytes # (Auto) 0.8 K/mm3 (0.0-0.8); Monocytes % (Auto) 11.5 % (0.0-7.3); Platelet Count 487 K/mm3 (140-440); Red Blood Count 3.76 M/mm3 (3.65-5.03); Red Cell Distribution Width 15.6 % (13.2-15.2)
--- NOTE | 2018-06-16 08:23 | Progress Note ---
Assessment and Plan - Patient Problems (1) pelvic abscess Onset Date: 06/13/18 Current Visit: Yes Status: Acute Plan to address problem: A: Pelvic abscess - s/p C Section Sepsis - most likely due to pelvic abscess UTI - E.coli Bacteremia - E.coli P: Continue IV antibiotics - currently on Ceftriaxone Appreciate Infectious Disease consultation (2) Sepsis Onset Date: 06/13/18 Current Visit: Yes Status: Acute Qualifiers: Sepsis type: sepsis due to unspecified organism Qualified Code(s): A41.9 - Sepsis, unspecified organism (3) Acute lower UTI (urinary tract infection) Onset Date: 06/14/18 Current Visit: Yes Status: Acute Subjective - Subjective Date of service: 06/16/18 Principal diagnosis: Pelvic abscess; Sepsis Interval history: Pt is a 28yo BF S/P C Section 06/01/18 who presented for evaluation of lower abdominal pain and ill-feeling. The patient reported lower abdominal pain , radiating to the back, crampy in quality, moderate in severity, and associated with chills and night sweats. She also reported subjective warmth but did not measure her temperature. Pelvic C T Scan showed a probable hematoma/ abscess in the lower abdominopelvic wall with a probable small seroma in the subcutaneous tissue of the lower pelvic wall. WBC was elevated at 22.5k, but now improved to 10.2k on IV Zosyn and Vancomycin. Infectious Disease has subsequently d/c'd the Vancomycin and Zosyn and started on IV Ceftriaxone. Her blood and urine cultures showed E.coli and her WBC is down to 7.3k Patient reports: appetite normal, voiding normally, pain well controlled, flatus , ambulating normally, no dizzy ambulation, no nauseated [place]: doing well Objective - Vital Signs Latest vital signs: Vital Signs Temp Pulse Resp BP BP Pulse Ox 06/16/18 05:05 98.8 F 81 16 110/73 06/16/18 00:35 98.3 F 98 H 18 125/80 06/15/18 20:38 98.6 F 91 H 18 134/89 06/15/18 18:58 100 H 20 150/101 100 06/15/18 18:27 73 154/109 06/15/18 17:50 79 189/113 06/15/18 15:48 99.2 F 81 18 161/94 100 06/15/18 13:16 98.5 F 102 H 20 154/105 100 Intake and Output 06/15/18 06/16/18 06/16/18 22:59 06:59 14:59 Intake Total 5.417 1133.75 Output Total 1 Balance 4.417 1133.75 Intake: IV 1785.417 893.75 Lactated Ringers 1,000 ml 1785.417 893.75 @ 125 mls/hr IV DIRECT MARILIN Rx#:[id number] Oral 240 Intake, Free Water 240 Output: Urine 1 Void 1 Other: Total, Output Amount 1 Voiding Method Toilet # Voids Void 2 - Exam Cardiovascular: Present: Regular rate Abdomen: Present: normal appearance, soft Uterus: Present: normal, firm, fundal height below umbilicus Incision: Present: normal, dry, intact - Labs Labs: Abnormal lab results 06/16/18 Range/Units 05:57 Hgb 9.9 L (10.1-14.3) gm/dl MCH 26 L (28-32) pg RDW 15.6 H (13.2-15.2) % Plt Count 487 H (140-440) K/mm3 [place] % (Auto) 11.5 H (0.0-7.3) % Laboratory Results - last 24 hr 06/16/18 05:57 WBC 7.3 RBC 3.76 Hgb 9.9 L Hct 30.8 MCV 82 MCH 26 L MCHC 32 RDW 15.6 H Plt Count 487 H Lymph % (Auto) 18.1 [place] % (Auto) 11.5 H Eos % (Auto) 2.4 Baso % (Auto) 0.7 Lymph # 1.3 [place] # 0.8 Eos # 0.2 Baso # 0.0 Seg Neutrophils % 67.3 Seg Neutrophils # 4.9 Microbiology 06/13/18 16:12 Peripheral/Venous Blood Culture - Preliminary NO GROWTH AFTER 48 HOURS 06/13/18 16:12 Peripheral/Venous Blood Culture - Preliminary NO GROWTH AFTER 48 HOURS 06/12/18 17:55 Peripheral/Venous Blood Culture - Preliminary NO GROWTH AFTER 72 HOURS 06/12/18 17:55 Peripheral/Venous Blood Culture - Preliminary Escherichia Coli
[2018-06-16] MEDS: PRENATAL VITAMIN PO SCH (10:21)
[2018-06-16] MEDS: PROCARDIA XL PO SCH (10:21)
[2018-06-16] MEDS: ROCEPHIN/NS 2 GM/100 ML 2 GM/100 ML BAG IV SCH (10:22)
--- NOTE | 2018-06-16 13:21 | Progress Note ---
Assessment and Plan Assessment: 1) Sepsis: Present on admission, manifested by fever, tachycardia, leukocytosis. Due to E coli bacteremia due to pelvic hematoma/abscess +/- UTI. Resolved sepsis. -Leukocytosis resolved as of 06/14. -Afebrile. 2) E coli bacteremia. -BCx 06/13 NGTD 3) E coli UTI. 4) Pelvic hematoma/abscess. - not amenable to drainage per IR 5) s/p 06/01/18. Plan: -Ok to change Cefuroxime 500 mg oral every 12h for 14 days. -Will need repeat pelvic/transvaginal US after completion of antibiotic. -d/w pt, RN. Marie Dick MD Infectious Diseases Specialist [facility] ([facility]) M [phone] Subjective Date of service: 06/16/18 Principal diagnosis: Pelvic abscess; Sepsis Interval history: Afebrile. Feels ok. Has mild HENAO. Denies N/V/D, CP, cough, SOB, abdominal pain, vaginal discharge. Microbiology: Blood cultures: 06/12 E coli 06/13 NGTD Urine cultures: 06/12 E coli only R to ampicillin, amp/sulbactam. Current Antimicrobials: Ceftriaxone 06/15- Prior Antimicrobials: Vancomycin 06/12- Zosyn 06/12-06/15 Objective - Exam Narrative Exam: General appearance: Pt in NAD, A&Ox3. Eyes: anicteric sclerae, moist conjunctivae; no lid-lag; PERRLA HENT: Atraumatic; oropharynx clear with moist mucous membranes and no mucosal ulcerations/no oral thrush; normal hard and soft palate. Normal external ears. Neck: Trachea midline; supple, no thyromegaly or lymphadenopathy Lungs: CTA, with normal respiratory effort and no intercostal retractions CV: S1,S2. S1,S2. Abdomen: Soft, mild tender to palpation below umbilicus. C section wound (s/p alma rosa removal 06/13), well approximated, no amanuel-wound erythema. Extremities: No c/c/e. Skin: Normal temperature, turgor and texture; no rash, ulcers or subcutaneous nodules Psych: Appropriate affect, alert and oriented to person, place and time. Neuro: alert and oriented x 3. Non-focal deficits. Lines: PIV. - Constitutional Vitals: Vital Signs Temp Pulse Resp BP Pulse Ox 98.4 F 89 18 107/64 99 06/16/18 12:00 06/16/18 12:02 06/16/18 12:00 06/16/18 12:00 06/16/18 12:02 Temperature -Last 24 Hours Temperature 98.4 F Temperature 98.1 F Temperature 98.8 F Temperature 98.3 F Temperature 98.6 F Temperature 99.2 F - Labs CBC & Chem 7: 06/16/18 05:57 06/12/18 17:55 Labs: Abnormal lab results 06/16/18 Range/Units 05:57 Hgb 9.9 L (10.1-14.3) gm/dl MCH 26 L (28-32) pg RDW 15.6 H (13.2-15.2) % Plt Count 487 H (140-440) K/mm3 [place] % (Auto) 11.5 H (0.0-7.3) %
[2018-06-16 16:46] VITALS: BP 108/68
--- NOTE | 2018-06-16 17:28 | Discharge Summary ---
Providers - Providers Date of Admission: 06/12/18 20:01 Date of discharge: 06/16/18 Attending physician: ANABEL JAVIER 06/13/18 10:14 Consult to Physician [CONS] Routine Comment: Consulting Provider: FLAVIA SPENCER Physician Instructions: Reason For Exam: Pelvic abscess Consult to Physician [CONS] Routine Comment: Consulting Provider: AZRA RAINEY Physician Instructions: Reason For Exam: Pelvic abscess Primary care physician: ANABEL JAVIER Hospitalization Reason for admission: other (Abdominal pain; Pelvic abscess) Episiotomy: none Laceration: none Incision: normal, dry, intact Other procedures: none complications: hematoma, pelvic infection Discharge diagnosis: other (Pelvic abscess - resolving) Pertinent studies: CT Scan; Pelvic u/s Hospital course: Pt is a 28yo BF S/P C Section 06/01/18 who presented for evaluation of lower abdominal pain and ill-feeling. The patient reported lower abdominal pain , radiating to the back, crampy in quality, moderate in severity, and associated with chills and night sweats. She also reported subjective warmth but did not measure her temperature. Pelvic C T Scan showed a probable hematoma/ abscess in the lower abdominopelvic wall with a probable small seroma in the subcutaneous tissue of the lower pelvic wall. WBC was elevated at 22.5k, but improved to 10.2k on IV Zosyn and Vancomycin. Infectious Disease was consulted and they discontinued the Vancomycin and Zosyn and started on IV Ceftriaxone. Her blood and urine cultures showed E.coli and her WBC came down to 7.3k By HD #4 she remained afebrile but BP's were elevated and now controlled with PO Procardia XL. She will therefore be discharged to home on HD #4 in stable condition. Condition at discharge: Good Disposition: DC-01 TO HOME OR SELFCARE - Discharge Diagnoses (1) pelvic abscess Status: Chronic (2) Sepsis Status: Resolved Qualifiers: Sepsis type: Escherichia coli Qualified Code(s): A41.51 - Sepsis due to Escherichia coli [E. coli] (3) Acute lower UTI (urinary tract infection) Status: Resolved Plan - Discharge Medications Prescriptions: Acetaminophen [Acetaminophen TAB] 650 mg PO Q4H PRN #30 tablet PRN Reason: Pain MILD(1-3)/Fever >100.5/HENAO Cefuroxime [Ceftin] 500 mg PO Q12HR #28 tablet NIFEdipine XL [Procardia Xl] 30 mg PO QDAY #30 tablet - Provider Discharge Summary Activity: routine, no sex for 6 weeks, no heavy lifting 4 weeks, no strenuous exercise Diet: routine Instructions: routine Additional instructions: [] Smoking cessation referral if applicable(refer to patient education folder for contact #) [] Refer to [facility]'s [facility] Booklet Call your doctor immediately for: * Fever > 100.5 * Heavy vaginal bleeding ( >1 pad per hour) * Severe persistent headache * Shortness of breath * Reddened, hot, painful area to leg or breast * Drainage or odor from incision. * Keep incision clean and dry at all times and follow doctor's instructions regarding bathing/showering - Follow up plan Follow up: PRIMARY CARE, [Referring] - 3-5 Days ANABEL JAVIER MD [Primary Care Provider] - 7 Days Forms: [facility] Discharge Summary
[2018-06-16] MEDS ORDERED: CEFTIN PO SCH (22:00)
== END 2018-06-16 19:53 | disposition home or self-care (01) | DRG 776 ==
LOC: ED 17:30 → OB 20:01
PROVIDERS: ADMIT Obstetrics & Gynecology; ATTEND Obstetrics & Gynecology
DX: O85 Puerperal sepsis (principal); O99.89 Other specified diseases and conditions complicating pregnancy, childbirth and the puerperium; N73.9 Female pelvic inflammatory disease, unspecified; E86.0 Dehydration; B96.20 Unspecified Escherichia coli [E. coli] as the cause of diseases classified elsewhere; Z79.899 Other long term (current) drug therapy
CPT/HCPCS: 36415; 71045; 74177; 76830; 76856; 80053; 81001; 82140; 82805; 85007; 85025; 85610; 87040; 87076; 87086; 87186; 93005; 93010; J0360; J0696; J1885; J2405; J2543; J3010; J3370; J7030; J7040; J7050; J7120; Q9967

== ENCOUNTER 2019-12-29 04:23 | Emergency (ER) | payer MEDICAID, OTHER ==
[2019-12-29] MEDS ORDERED: cloNIDine 0.1 MG TAB PO ONE (04:53)
--- NOTE | 2019-12-29 05:33 | Cat Scan Report ---
{null, CT HEAD WITHOUT CONTRAST INDICATION: Headache TECHNIQUE: Axial slices were obtained through the head. Coronal and sagittal reformatted images were obtained. COMPARISON: CT scan dated 03/27/2012 FINDINGS: There is no intracranial hemorrhage or extra-axial fluid collection. Ventricles, basilar cisterns, an d sulci appear within normal limits for age. There is no mass lesion or midline shift. No acute jay torial infarct is identified. Bone windows demonstrate no acute osseous abnormality. Paranasal sinuses and mastoid air cells appear clear. TECHNIQUE: All CT scans at this facility use dose modulation, iterative reconstruction, automated ex posure control, weight based dosing, when appropriate, to reduce radiation dose to as low as reasonab ly achievable. IMPRESSION: 1. No acute intracranial abnormality. Signer Name: Sanju Lee MD Signed: 12/29/2019 5:28 AM Workstation Name: [id number] }
--- NOTE | 2019-12-29 06:31 | Emergency Department Report ---
{null, ED General Adult HPI - General Chief complaint: Headache Stated complaint: POSS HIGH BP Time Seen by Provider: 12/29/19 06:14 Source: patient Mode of arrival: Ambulatory Limitations: No Limitations - History of Present Illness Initial comments: 29-year-old female with a history of hypertension and hypertension in . She states "sometimes I get headaches". The headaches were not of acute onset nor severe intensity. She states she has had intermittent headaches over the past 2 days and difficulty sleeping. She took her blood pressure and found it approximately 140/100 yesterday and became concerned last night. She has had some difficulty sleeping. She does not complain of any focal neurological symptoms, difficulty speaking or walking. She is resting comfortably at this time. She was given 0.1 of clonidine by my predecessor. Patient states that she last had hypertension during her of 2017. She was first diagnosed with in 2011 when she was not . She has been poorly compliant with treatment and medical follow-up. -: Gradual Location: head Radiation: non-radiation Quality: aching Consistency: intermittent, now resolved Improves with: none Worsens with: none Associated Symptoms: denies other symptoms, nausea/vomiting (Some nausea no vomiting) Treatments Prior to Arrival: none - Related Data Previous Rx's Medication Instructions Recorded Last Taken Type HYDROcodone/APAP 5-325 [Cordell 1 each PO Q6HR PRN #12 tablet 04/26/17 Unknown Rx 5-325 mg TAB] Ibuprofen [Motrin] 600 mg PO Q8H PRN #15 tablet 04/26/17 Unknown Rx Sulfamethoxazole/Trimethoprim 1 each PO BID #20 tablet 04/26/17 Unknown Rx [Bactrim DS TAB] Ferrous Sulfate [Feosol 325 MG tab] 325 mg PO BID #60 tablet 06/04/18 Unknown Rx Ibuprofen [Motrin] 600 mg PO Q6H PRN #30 tablet 18 06/12/18 Rx oxyCODONE /ACETAMINOPHEN [Percocet 1 tab PO Q6HR PRN #30 tablet 06/04/18 Unknown Rx 5/325] Acetaminophen [Acetaminophen TAB] 650 mg PO Q4H PRN #30 tablet 06/16/18 Unknown Rx NIFEdipine XL [Procardia Xl] 30 mg PO QDAY #30 tablet 06/16/18 Unknown Rx cefUROXime [Ceftin] 500 mg PO Q12HR #28 tablet 06/16/18 Unknown Rx Amlodipine Besylate [Norvasc] 2.5 mg PO DAILY #30 tablet 12/29/19 Unknown Rx Allergies Allergy/AdvReac Type Severity Reaction Status Date / Time No Known Allergies Allergy Verified 04/26/17 11:51 ED Review of Systems ROS: Stated complaint: POSS HIGH BP Other details as noted in HPI Constitutional: denies: chills, fever Eyes: denies: eye pain, eye discharge, vision change ENT: denies: ear pain, throat pain Respiratory: denies: cough, shortness of breath, wheezing Cardiovascular: denies: chest pain, palpitations Endocrine: no symptoms reported Gastrointestinal: denies: abdominal pain, nausea, diarrhea Genitourinary: denies: urgency, dysuria, discharge Musculoskeletal: denies: back pain, joint swelling, arthralgia Skin: denies: rash, lesions Neurological: headache. denies: weakness, paresthesias Psychiatric: denies: anxiety, depression Hematological/Lymphatic: denies: easy bleeding, easy bruising ED Past Medical Hx - Past Medical History Previous Medical History?: Yes Hx Hypertension: Yes Hx Congestive Heart Failure: No Hx Diabetes: No Hx Deep Vein Thrombosis: No Hx Renal Disease: No Hx Sickle Cell Disease: No Hx Seizures: No Hx Asthma: Yes Hx HIV: No Additional medical history: Anemia after with transfusion - Surgical History Past Surgical History?: Yes Additional Surgical History: - Social History Smoking Status: Never Smoker Substance Use Type: Marijuana - Medications Home Medications: Home Medications Medication Instructions Recorded Confirmed Last Taken Type HYDROcodone/APAP 5-325 [Cordell 1 each PO Q6HR PRN #12 tablet 04/26/17 06/13/18 Unknown Rx 5-325 mg TAB] Ibuprofen [Motrin] 600 mg PO Q8H PRN #15 tablet 04/26/17 06/13/18 Unknown Rx Sulfamethoxazole/Trimethoprim 1 each PO BID #20 tablet 04/26/17 06/13/18 Unknown Rx [Bactrim DS TAB] Ferrous Sulfate [Feosol 325 MG tab] 325 mg PO BID #60 tablet 06/04/18 06/13/18 Unknown Rx Ibuprofen [Motrin] 600 mg PO Q6H PRN #30 tablet 06/04/18 06/13/18 06/12/18 Rx oxyCODONE /ACETAMINOPHEN [Percocet 1 tab PO Q6HR PRN #30 tablet 06/04/18 06/13/18 Unknown Rx 5/325] Acetaminophen [Acetaminophen TAB] 650 mg PO Q4H PRN #30 tablet 06/16/18 Unknown Rx NIFEdipine XL [Procardia Xl] 30 mg PO QDAY #30 tablet 06/16/18 Unknown Rx cefUROXime [Ceftin] 500 mg PO Q12HR #28 tablet 06/16/18 Unknown Rx Amlodipine Besylate [Norvasc] 2.5 mg PO DAILY #30 tablet 12/29/19 Unknown Rx ED Physical Exam - General Limitations: No Limitations General appearance: alert, in no apparent distress - Head Head exam: Present: atraumatic, normocephalic - Eye Eye exam: Present: normal appearance. Absent: scleral icterus - ENT ENT exam: Present: mucous membranes moist, other (Somewhat hirsuit) - Neck Neck exam: Present: normal inspection. Absent: tenderness, meningismus - Respiratory Respiratory exam: Present: normal lung sounds bilaterally. Absent: respiratory distress - Cardiovascular Cardiovascular Exam: Present: regular rate, normal rhythm. Absent: systolic murmur, diastolic murmur, rubs, gallop - GI/Abdominal GI/Abdominal exam: Present: soft, normal bowel sounds. Absent: distended, tenderness, guarding, rebound, rigid - Extremities Exam Extremities exam: Present: normal inspection. Absent: pedal edema, joint swelling, calf tenderness - Back Exam Back exam: Present: normal inspection - Neurological Exam Neurological exam: Present: alert, oriented X3, CN II-XII intact. Absent: motor sensory deficit - Psychiatric Psychiatric exam: Present: normal affect, normal mood - Skin Skin exam: Present: warm, dry, intact, normal color. Absent: rash ED Course Vital Signs 12/29/19 12/29/19 12/29/19 04:28 05:30 05:50 Temperature 98.4 F Pulse Rate 85 74 Respiratory 18 Rate Blood Pressure 165/109 141/102 140/103 Blood Pressure [Right] O2 Sat by Pulse 100 Oximetry 12/29/19 12/29/19 12/29/19 06:20 06:37 07:01 Temperature Pulse Rate Respiratory 16 Rate Blood Pressure 149/97 129/74 Blood Pressure 157/109 [Right] O2 Sat by Pulse 100 Oximetry 12/29/19 12/29/19 07:20 08:34 Temperature 98.4 F Pulse Rate 77 58 L Respiratory 22 11 L Rate Blood Pressure 129/74 Blood Pressure 129/74 [Right] O2 Sat by Pulse 100 100 Oximetry - Reevaluation(s) Reevaluation #1: Substantial response of blood pressure to clonidine. Patient will be given a prescription for amlodipine 2.5 mg. However she is instructed to recheck her blood pressure before she takes it to ensure it has remained hypertensive. She has been referred to a local primary care setting. 12/29/19 08:39 ED Medical Decision Making - Lab Data Result diagrams: 12/29/19 07:31 12/29/19 07:31 Laboratory Results - last 24 hr 12/29/19 12/29/19 06:28 07:31 Barbour % (Auto) 10.0 H Eos % (Auto) 4.4 H Barbour # 0.5 Eos # 0.2 Baso # 0.1 Seg Neutrophils % 50.4 Seg Neutrophils # 2.3 Urine HCG, Qual Negative Laboratory Results - last 24 hr 12/29/19 12/29/19 12/29/19 06:28 07:31 07:31 WBC 4.6 RBC 4.24 Hgb 10.1 Hct 31.6 MCV 74 L MCH 24 L MCHC 32 RDW 16.2 H Plt Count 254 Lymph % (Auto) 33.7 Barbour % (Auto) 10.0 H Eos % (Auto) 4.4 H Baso % (Auto) 1.5 Lymph # 1.5 Barbour # 0.5 Eos # 0.2 Baso # 0.1 Seg Neutrophils % 50.4 Seg Neutrophils # 2.3 Sodium 139 Potassium 4.1 Chloride 104.2 Carbon Dioxide 22 Anion Gap 17 BUN 11 Creatinine 0.7 Estimated GFR > 60 BUN/Creatinine Ratio 16 Glucose 103 H Calcium 9.2 Urine HCG, Qual Negative - Radiology Data Radiology results: report reviewed (CT of the head no acute process per rad iologist), image reviewed Critical care attestation.: If time is entered above; I have spent that time in minutes in the direct care of this critically ill patient, excluding procedure time. ED Disposition Clinical Impression: Essential hypertension Cephalalgia Qualifiers: Headache type: unspecified Headache chronicity pattern: chronic headache Intractability: not intractable Qualified Code(s): R51 - Headache Disposition: DC-01 TO HOME OR SELFCARE Is pt being admited?: No Does the pt Need Aspirin: No Condition: Stable Instructions: Hypertension (ED), Acute Headache (ED) Additional Instructions: Check your blood pressure before starting the new medication tomorrow. Do not take if your blood pressure is not elevated beyond 140/90. Monitor your blood pressure daily. Return to the emergency department any acute change or problem. Follow-up at the [facility]. Prescriptions: Amlodipine Besylate [Norvasc] 2.5 mg PO DAILY #30 tablet Referrals: [facility] [Provider Group] - 3-5 Days Time of Disposition: 08:41 }
[2019-12-29 06:37] LABS: HCG Qualitative,Urine Negative (Negative)
[2019-12-29 07:51] LABS: Basophils # (Auto) 0.1 K/mm3 (0.0-0.1); Basophils % (Auto) 1.5 % (0.0-1.8); Eosinophils # (Auto) 0.2 K/mm3 (0.0-0.4); Eosinophils % (Auto) 4.4 % (0.0-4.3); Hematocrit 31.6 % (30.3-42.9); Hemoglobin 10.1 gm/dl (10.1-14.3); Lymphocytes # (Auto) 1.5 K/mm3 (1.2-5.4); Lymphocytes % (Auto) 33.7 % (13.4-35.0); Mean Corpuscular HGB Conc 32 % (30-34); Mean Corpuscular Volume 74 fl (79-97); Monocytes # (Auto) 0.5 K/mm3 (0.0-0.8); Platelet Count 254 K/mm3 (140-440); Red Blood Count 4.24 M/mm3 (3.65-5.03); Red Cell Distribution Width 16.2 % (13.2-15.2)
[2019-12-29 08:11] LABS: BUN/Creatinine Ratio 16; Blood Urea Nitrogen 11 mg/dL (7-17); Calcium 9.2 mg/dL (8.4-10.2); Hemolysis Index 5
[2019-12-29 09:46] VITALS: BP 115/77
== END 2019-12-29 09:35 | disposition home or self-care (01) ==
LOC: ED 04:23
DX: R51 Headache (principal); I10 Essential (primary) hypertension; J45.909 Unspecified asthma, uncomplicated; F12.10 Cannabis abuse, uncomplicated; Z79.899 Other long term (current) drug therapy; Z79.1 Long term (current) use of non-steroidal anti-inflammatories (NSAID); Z98.890 Other specified postprocedural states
CPT/HCPCS: 36415; 70450; 80048; 81025; 85025